=== PATIENT | male | born 1965 ===

== ENCOUNTER → 2021-03-04 08:11 | Outpatient (CLI) | payer BC, SELFPAY ==
[2021-03-04 08:54] LABS: Basophils # 0.1 K/mm3 (0-0.2); Basophils % 1.2 % (0.1-2.0); Eosinophils # 0.6 K/mm3 (0.0-0.4); Eosinophils % 4.5 % (0.1-12.0); Hematocrit 45.4 % (42.0-52.0); Hemoglobin 15.2 g/dL (14.1-18.0); Lymphocytes # 3.7 K/mm3 (0.7-4.5); Lymphocytes % 29.8 % (10-50); Mean Corpuscular HGB Conc 33.5 g/dL (31.8-35.4); Mean Corpuscular Hemoglobin 30.1 pg (27.0-31.2); Mean Corpuscular Volume 89.9 fl (80-94); Mean Platelet Volume 7.8 fl (7.4-10.4); Monocytes % 8.2 % (1.7-9.3); Neutrophils # 6.9 K/mm3 (1.8-7.8); Neutrophils % 56.3 % (37.0-80.0); Platelet Count 308 K/mm3 (142-424); Red Blood Count 5.04 M/mm3 (4.60-6.20); White Blood Count 12.3 K/mm3 (4.8-10.8)
[2021-03-04 09:36] LABS: Alanine Aminotransferase 32 U/L (12-78); Albumin Level 3.9 g/dl (3.5-5.0); Albumin/Globulin Ratio 1.5 (1.1-1.8); Alkaline Phosphatase 60 U/L (38-126); Anion Gap 12.6 mEq/L (5-15); Aspartate Amino Transferase 33 U/L (17-59); Bilirubin,Total 0.3 mg/dl (0.2-1.3); Blood Urea Nitrogen 18 mg/dl (9-20); Calcium 9.3 mg/dl (8.4-10.2); Carbon Dioxide 25 mmol/L (22.0-30.0); Chloride 107 mmol/L (98-107); Chol/HDL Ratio 2.9 (1-3.5); Cholesterol 118 mg/dl (140-200); Estimated Glomerular Filt Rate 100 ml/min (>60); GFR (African American) 121 ML/MIN (>60); Globulin 2.6 g/dL (1.3-3.2); Glucose 88 mg/dl (74-100); HDL Cholesterol 41 mg/dl (40-60); Potassium 4.6 mmoL/L (3.5-5.1); Sodium 140 mmol/L (136-145); Total Protein,Serum 6.5 g/dl (6.3-8.2); Triglycerides 72 mg/dl (30-150); VLDL Cholesterol 14 mg/dL (0-40)
[2021-03-04 09:47] LABS: Direct LDL Cholesterol 64.31 mg/dL (100-129)
[2021-03-04 10:01] LABS: 25-OH Vitamin D, Total 55.3 ng/mL (30-100)
[2021-03-04 10:07] LABS: Thyroid Stimulating Hormone 5.05 uIU/mL (0.465-4.68)
[2021-03-04 10:25] LABS: Vitamin B12 660 pg/mL (239-931)
[2021-03-04 11:28] LABS: Erythrocyte Sedimentation Rate 16 mm/hr (0-20)
[2021-03-04 11:59] LABS: Hemoglobin A1C 5.8 % (4.0-6.0)
== END ==
PROVIDERS: Visit Provider Internal Medicine Adolescent Medicine
DX: E78.5 Hyperlipidemia, unspecified (principal); L40.9 Psoriasis, unspecified; Z86.39 Personal history of other endocrine, nutritional and metabolic disease
CPT/HCPCS: 36415; 80053; 80061; 82306; 82607; 83036; 84443; 85025; 85651